=== PATIENT | male | born 1945 | race Caucasian/White ===

== ENCOUNTER 2017-12-20 21:10 | Emergency (ER) | payer MEDICARE ==
[2017-12-20] MEDS ORDERED: traMADol HCl 50 MG TAB ONE ×2 (22:03→23:37)
[2017-12-20] MEDS ORDERED: Ketorolac Tromethamine 30 MG/ML VIAL ONE (22:03)
--- NOTE | 2017-12-20 22:09 | RAD ---
LEFT ANKLE THREE VIEWS: 12/20/2017 HISTORY: Ankle pain. COMPARISON: None. FINDINGS: There is soft tissue swelling lateral to the lateral malleolus. There is joint space narrowing at th e tibiotalar articulation with subchondral sclerosis and osteophyte formation. There is no acute fra cture or evidence of dislocation. The talar dome and ankle mortise appear intact. IMPRESSION: Degenerative change and soft tissue swelling with no displaced fracture of evidence of dislocation. Lateral soft tissue swelling may be inflammatory/infectious in nature, if the patient does not have a history of trauma. POS: [facility]
[2017-12-20 22:19] LABS: #Basophils 0.1 thou/uL (0.0-0.2); #Eosinphils 0.2 thou/uL (0.0-0.7); #Lymphocytes 1.8 thou/uL (1.20-3.40); #Neutrophils 6.6 thou/uL (1.40-6.50); %Basophils 0.8 % (0.0-1.0); %Eosinophils 1.8 % (0.0-10.0); %Neutrophils 68.4 % (42.0-75.0); Hemoglobin 16.1 g/dL (14.0-18.0); Mean Corpuscular HGB CONC 35.9 g/dL (32.0-36.0); Mean Corpuscular Hemoglobin 32.3 pg (27.0-31.0); Mean Corpuscular Volume 89.8 fl (80.0-94.0); Mean Platelet Volume 8.3 fL (7.4-10.4); Platelet Count 135 thou/uL (130-400); RBC Distribution Width 11.3 % (11.5-14.5); Red Blood Cell (RBC) Count 4.99 mill/uL (4.70-6.10); White Blood Cell (WBC) Count 9.6 thou/uL (4.8-10.8)
[2017-12-20 22:32] LABS: ALT (SGPT) 27 U/L (8-55); AST (SGOT) 21 U/L (5-34); Albumin 4.1 g/dL (3.4-4.8); Alkaline Phosphatase 44 U/L (40-150); Anion Gap 14 mmol/L (10-20); BUN (Urea Nitrogen) 17 mg/dL (8.4-25.7); Bilirubin, Total 0.4 mg/dL (0.2-1.2); CRP (Inflammatory) Less than 0.50 mg/dL (= or < 0.5); Calc. Creatinine Clearance 0 mL/min (70-130); Calcium 9.4 mg/dL (7.8-10.44); Carbon Dioxide 27 mmol/L (23-31); Chloride 103 mmol/L (98-107); Estimated GFR-MDRD 75; Globulin 2.9 g/dL (2.4-3.5); Glucose 97 mg/dL (83-110); Potassium 4.3 mmol/L (3.5-5.1); Sodium 140 mmol/L (136-145)
[2017-12-20] MEDS ORDERED: Lidocaine 2% 10 ML INJ ONE (22:37)
[2017-12-20] MEDS ORDERED: Bacitracin Zinc 1 Packet ONE (23:29)
== END 2017-12-20 23:42 | disposition home or self-care (01) ==
LOC: SCSER 21:10
DX: M19.072 Primary osteoarthritis, left ankle and foot (principal); I25.2 Old myocardial infarction; E78.5 Hyperlipidemia, unspecified; Z79.82 Long term (current) use of aspirin; Z79.899 Other long term (current) drug therapy
CPT/HCPCS: 80053; 85025; 85652; 86140; 96372; J1885